=== PATIENT | male | born 1980 | race Caucasian/White ===

== ENCOUNTER 2020-05-31 17:06 | Emergency (ER) | payer BC ==
[~2020-05-31] VITALS: Ht 175.3 cm; Wt 93.0 kg
== END 2020-05-31 19:43 | disposition home or self-care (01) ==
LOC: ER 17:06
DX: B34.9 Viral infection, unspecified (principal); Z03.818 Encounter for observation for suspected exposure to other biological agents ruled out

== ENCOUNTER 2020-06-06 23:10 | Emergency (ER) | payer BC ==
[~2020-06-06] VITALS: Ht 175.3 cm; Wt 93.0 kg
[2020-06-07] MEDS ORDERED: TYLENOL325 MG (00:03)
[2020-06-07] MEDS ORDERED: QVAR REDIHALE10.6 G1 IH (06:47)
[2020-06-07] MEDS ORDERED: ALBUTEROL2.5 MG/3 M IH (06:47)
[2020-06-07] MEDS ORDERED: ZITHROMAX500 MG PO (06:47)
[2020-06-07] MEDS ORDERED: ZYNCOF 20-400120 ML PO (06:47)
[2020-06-07] MEDS ORDERED: ORAPRED ODT10 MG PO (06:47)
== END 2020-06-07 07:15 | disposition home or self-care (01) ==
LOC: ER 23:10
DX: J20.9 Acute bronchitis, unspecified (principal); Z20.828 Contact with and (suspected) exposure to other viral communicable diseases